=== PATIENT | male | born 1975 | race Caucasian/White ===

== ENCOUNTER 2017-01-12 11:45 | Emergency (ER) | payer SELFPAY ==
[~2017-01-12] VITALS: Ht 167.6 cm; Wt 75.0 kg
[2017-01-12] MEDS ORDERED: ONDANSETRON HCL 4 MG/2 ML VIAL IVP ONE (14:30)
[2017-01-12] MEDS ORDERED: ACETAMINOPHEN 325 MG TABLET PO ONE (14:30)
[2017-01-12] MEDS ORDERED: MECLIZINE HCL 25 MG TABLET PO ONE (14:30)
[2017-01-12] MEDS ORDERED: SODIUM CHLORIDE 0.9% 1,000 ML IV ONE (14:30)
[2017-01-12 17:31] VITALS: BP 131/82
== END 2017-01-12 17:33 | disposition home or self-care (01) ==
LOC: EMS 11:57
DX: S09.90XA Unspecified injury of head, initial encounter (principal); R42 Dizziness and giddiness; Z88.0 Allergy status to penicillin; W19.XXXA Unspecified fall, initial encounter; Y93.89 Activity, other specified; Y92.89 Other specified places as the place of occurrence of the external cause; Y99.8 Other external cause status
CPT/HCPCS: 70450; 96361; 96374; 99285; J2405; J7030